=== PATIENT | female | born 1950 | race Caucasian/White ===

== ENCOUNTER → 2017-01-10 | Day surgery (SDC) | payer MEDICARE, MEDICAID ==
[~2017-01-10] MED LIST: ACET-3161 GT; AMLO10TA80 PO; ATEN100T PO; ATOR40TA70 PO; BENA20TA3 PO; CALCIUM ACETATE; CARV6.2548 PO; CITA20TA11 PO; DOCU-150 PO; ESOM40CA PO; FOLI-43 PO; FURO40TA5 PO; HYDR-3735 PO; HYDR200T35 PO; LEVEMIR; LIDOCAINE HCL 1% 20ML VIAL (Pyxis) INJ ONE; LOSA100T14 PO; MAGN400T27 PO; METH2.5T PO; METO-293 PO; NOVOLOG; POTA10CA42 PO; RENAVITE; SERT50TA PO; SITA50TA3 PO; SODIUM BICARBONATE 4% (2.4MEQ) 5ML VIAL IV ONE
== END | disposition home or self-care (01) ==
LOC: RAD 11:56
PROVIDERS: ATTEND Internal Medicine Rheumatology
DX: Z45.2 Encounter for adjustment and management of vascular access device (principal)
CPT/HCPCS: 36569; 76937; 77001; C1725; J3490; J7050

== ENCOUNTER 2017-02-05 13:15 | Emergency (ER) | payer MEDICARE, MEDICAID ==
[~2017-02-05] VITALS: Ht 154.9 cm; Wt 66.0 kg
[~2017-02-05 13:15] MED LIST changes: -LIDOCAINE HCL 1% 20ML VIAL (Pyxis) INJ ONE; -SODIUM BICARBONATE 4% (2.4MEQ) 5ML VIAL IV ONE
[2017-02-05 16:45] LABS: HEMOGLOBIN 10.6 g/dL (12.0-16.0); MEAN CORPUSCULAR HEMOGLOBIN 28.2 pg (28.0-32.0); MEAN CORPUSCULAR VOLUME 90.3 fL (81.0-99.0); PLATELET 161 x1000/uL (130-400); RED BLOOD CELL COUNT 3.76 mill/uL (4.2-5.4); RED CELL DISTRIBUTION WIDTH 18.9 % (11.6-14.6)
[2017-02-05 18:16] VITALS: BP 171/94
== END 2017-02-05 18:26 | disposition home or self-care (01) ==
LOC: ER 13:38
DX: R04.0 Epistaxis (principal); I12.0 Hypertensive chronic kidney disease with stage 5 chronic kidney disease or end stage renal disease; N18.6 End stage renal disease; E11.22 Type 2 diabetes mellitus with diabetic chronic kidney disease; E78.00 Pure hypercholesterolemia, unspecified; M19.90 Unspecified osteoarthritis, unspecified site; Z79.4 Long term (current) use of insulin; Z99.2 Dependence on renal dialysis
CPT/HCPCS: 36415; 85027; 93005; 99285

== ENCOUNTER → 2017-03-21 | Outpatient (CLI) | payer MEDICARE, MEDICAID | END | disposition home or self-care (01) | LOC: NM 08:25 | PROVIDERS: ATTEND Internal Medicine Rheumatology | DX: T84.012A Broken internal right knee prosthesis, initial encounter (principal); T84.013A Broken internal left knee prosthesis, initial encounter; M06.4 Inflammatory polyarthropathy; M05.79 Rheumatoid arthritis with rheumatoid factor of multiple sites without organ or systems involvement | CPT/HCPCS: 78315; A9503 ==